=== PATIENT | male | born 1990 | race African-American/Black ===

== ENCOUNTER 2016-05-10 12:55 | Emergency (ER) | payer OTHER ==
[~2016-05-10] VITALS: Ht 182.9 cm; Wt 95.3 kg
[~2016-05-10 12:55] MED LIST: CORTISPORIN 1%-10 ML OT; ZITHROMAX Z-PA250 M1 PO
[2016-05-10 13:05] VITALS: BP 147/78
--- NOTE | 2016-05-10 16:46 | ED UPPER/LOWER EXTREMITY COMPL ---
History of Present Illness General Chief Complaint: Lower Extremity Problems Stated Complaint: L KNEE PAIN X4 DAYS Source: patient Exam Limitations: no limitations Vital Signs & Intake/Output Vital Signs & Intake/Output Vital Signs Date Time Temp Pulse Resp B/P Pulse O2 O2 Flow FiO2 Ox Delivery Rate 05/10 1305 98.9 82 18 147/78 99 Room Air Allergies Coded Allergies: Penicillins (Severe, THROAT CLOSURE 05/10/16) Triage Note: C/O LEFT KNEE PAIN SINCE SATURDAY. HURT IT PLAYING BASKETBALL NO RELIEF OF PAIN WITH ICE Triage Nurses Notes Reviewed? yes HPI: Patient presents for evaluation of bilateral left knee pain that occurred abruptly 4 days ago while playing basketball. Patient states that he stopped suddenly pain in the knee. He states there was no fall or other trauma or direct blow. Since then he has had worsening constant bilateral left knee pain that has not responded to ice and elevation. He states pain worsens with attempts to ambulate and with palpation. Past History Travel History Traveled to [place] past 21 day No Medical History Any Pertinent Medical History? see below for history Neurological: NONE EENT: NONE Cardiovascular: NONE Respiratory: NONE Gastrointestinal: NONE Hepatic: NONE Renal: NONE Musculoskeletal: NONE Psychiatric: NONE Endocrine: NONE Blood Disorders: NONE Cancer(s): NONE REDYE HAND/Reproductive: NONE Surgical History Surgical History: N Psychosocial History What is your primary language French Tobacco Use: Never used ETOH Use: occasional use Illicit Drug Use: denies illicit drug use Family History Hx Contributory? No Review of Systems Review of Systems Constitutional: Reports: no symptoms. EENTM: Reports: no symptoms. Respiratory: Reports: no symptoms. Cardiovascular: Reports: no symptoms. Gastrointestinal/Abdominal: Reports: no symptoms. Genitourinary: Reports: no symptoms. Musculoskeletal: Reports: see HPI. Skin: Reports: no symptoms. Neurological/Psychological: Reports: no symptoms. Hematologic/Endocrine: Reports: no symptoms. Immunological: Reports: no symptoms. All Other Systems: Reviewed and Negative Physical Exam Physical Exam General Appearance: SEE BELOW Comments: Gen.: Well-nourished, well-developed, no acute respiratory distress. Head: Normocephalic, atraumatic. Eyes: Normal inspection bilaterally Ears: Normal inspection bilaterally Nose: Normal inspection, nasal cannula in place Throat/mouth : Moist mucosa Neck: Supple, full range of motion, no goiter Heart: Regular rate and rhythm Lungs: Quiet respirations Back: Normal range of motion Extremities: Left knee: Slight knee effusion. No ecchymoses or soft tissue swelling otherwise. Tenderness of the lateral and medial collateral ligaments, no drawer sign. No tenderness over the popliteal fossa. Neurologic: Cranial nerves grossly intact, speech is clear Skin: warm and dry Psychiatric: Calm, cooperative, no apparent delusions or hallucinations Progress Differential Diagnosis: contusion, dislocation, fracture, sprain Plan of Care: Immobilizer, anti-inflammatory, follow up Comments: Given the mechanism and physical examination, I do not feel the patient requires imaging studies. Patient agrees. Departure Departure Disposition: HOME OR SELF CARE Condition: Stable Clinical Impression Primary Impression: Left knee sprain Qualifiers: Encounter type: initial encounter Involved ligament of knee: medial collateral ligament Qualified Code: S83.412A - Sprain of medial collateral ligament of left knee, initial encounter Secondary Impressions: Effusion, left knee Referrals: PATIENT HAS NO PRIMARY CARE DR (PCP/Family) Additional Instructions: Voltaren as prescribed for knee pain. Knee immobilizer as required. Follow-up with either your primary care physician or an orthopedic physician in 2 weeks if not improved. Return if any concerns or sudden worsening. Thank you for choosing the [facility] Emergency Department for your care. It was a pleasure to serve you today. Dwight Murdock M.D. [facility] Departure Forms: Customer Survey General Discharge Information
[2016-05-10] MEDS ORDERED: DICLOFENAC SODI75 M2 PO (17:01)
== END 2016-05-10 17:37 ==
LOC: ERH 12:55
DX: S83.92XA Sprain of unspecified site of left knee, initial encounter (principal); M25.462 Effusion, left knee; X58.XXXA Exposure to other specified factors, initial encounter; Y93.67 Activity, basketball

== ENCOUNTER 2016-06-21 18:28 | Emergency (ER) | payer OTHER ==
[~2016-06-21] VITALS: Ht 182.9 cm; Wt 95.3 kg
[~2016-06-21 18:28] MED LIST changes: +DICLOFENAC SODI75 M2 PO
[2016-06-21 20:11] LABS: ABSOLUTE BASOPHIL COUNT 0 /CUMM (0.0-0.2); ABSOLUTE EOSINOPHIL COUNT 0.2 /CUMM (0.0-0.7); ABSOLUTE GRANULOCYTE CT 3.8 /CUMM (1.4-6.5); ABSOLUTE LYMPH COUNT 2.1 /CUMM (1.2-3.4); ABSOLUTE MONOCYTE COUNT 0.5 /CUMM (0.10-0.60); BASOPHIL % 0.4 % (0.0-2.0); EOSINOPHIL % 2.6 % (0-5); GRANULOCYTE % 57.1 % (42.2-75.2); HEMATOCRIT 43.7 % (42-52); MEAN CORPUSCULAR HGB 28.8 PG (27.0-31.0); MEAN CORPUSCULAR HGB CONC 32.7 G/DL (33.0-37.0); MEAN CORPUSCULAR VOLUME 87.9 FL (80.0-94.0); MEAN PLATELET VOLUME 8.1 FL (7.4-10.4); PLATELET COUNT 277 /CUMM (130-400); RBC DISTRIBUTION WIDTH 13.5 % (11.5-14.5); RED BLOOD CELL CT 4.97 /CUMM (4.70-6.10); WHITE BLOOD CELL COUNT 6.7 /CUMM (4.8-10.8)
--- NOTE | 2016-06-21 21:22 | ED GI/GU/ABDOMINAL COMPLAINT ---
History of Present Illness General Chief Complaint: Abdominal Pain/Flank Pain Stated Complaint: R SIDE FLANK PAIN AND FEVER Source: patient Exam Limitations: no limitations Vital Signs & Intake/Output Vital Signs & Intake/Output Vital Signs Date Time Temp Pulse Resp B/P Pulse O2 O2 Flow FiO2 Ox Delivery Rate 06/211 97.6 63 18 124/66 97 Room Air 06/21 1900 99.4 79 18 139/75 97 Room Air Allergies Coded Allergies: Penicillins (Severe, THROAT CLOSURE 05/10/16) Triage Note: PT TO TRIAGE WITH C/O EPIGASTRIC AND RLQ PAIN/CRAMPING ON/OFF SINCE YESTERDAY, FEVER, DIARRHEA, NAUSEA. PT DENIES VOMITING, DENIES CHEST PAIN,SOB. PT AFEBRILE IN TRIAGE. DENIES PAIN IN TRIAGE. VSS. Triage Nurses Notes Reviewed? yes Onset: Gradual Duration: day(s): (2) Timing: no prior history Quality/Severity: sharpness Severity Numbers: 6 Location: right lower quadrant Radiation: no radiation Activities at Onset: none Prior Abdominal Problems: none Past Sexual History: Unobtainable at this time No Modifying Factors: none HPI: Patient is a 26-year-old male presenting to the emergency department with chief complaint of right lower quadrant pain, nausea, decreased by mouth intake has been going on since yesterday. Decreased by mouth intake since yesterday, no vomiting. He reports one episode of diarrhea yesterday. Denies any urinary frequency urgency or dysuria. No testicular pain. Pain is moderate. He reports that the pain seems to come and go since yesterday. Denies taking anything at home to help with pain. (ODILIA BENEDICT) Reconcile Medications No Known Home Medications (RIANA ROSALES MD) Past History Travel History Traveled to [place] past 21 day No Medical History Any Pertinent Medical History? 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 No (ODILIA BENEDICT) Review of Systems Review of Systems Constitutional: Reports: chills, malaise. Comments Review of systems: See HPI, All other systems negative. Constitutional, no fever or weight loss HEENT: No visual changes no sore throat no congestion Cardiovascular: No chest pain ,palpitation Skin, no jaundice no rashes Respiratory: No dyspnea cough sputum or hemoptysis GI: no vomiting : No dysuria No hematuria Muscle skeletal: no back pain, no neck pain, Neurologic: No numbness no confusion Psych: No stress anxiety Immunology: No splenectomy or history of AIDS (ODILIA BENEDICT) Physical Exam Physical Exam General Appearance: well developed/nourished, no apparent distress, alert, awake , comfortable Gastrointestinal: normal bowel sounds, soft, guarding, tenderness Comments: Well-developed well-nourished person in no acute distress HEENT:Pupils equally round and reactive to light and accommodation. Nose is atraumatic.. Neck: Normal inspection Back: Nontender, no CVA tenderness. Cardiovascular: Regular rate and rhythms no murmurs rubs or gallops, normal JVP Respiratory: Chest nontender. No respiratory distress.breath sounds clear to auscultation bilaterally Abdomen: Soft, tender to palpation in the right lower quadrant, mild guarding, nondistended, no appreciable organomegaly. Normal bowel sounds. No ascites Extremity: No edema Neuro: Alert oriented x3 Skin: No appreciable rash on exposed skin, skin is warm and dry. Psych: Mood and affect is normal, memory and judgment is normal. Core Measures ACS in differential dx? No Severe Sepsis Present: No Septic Shock Present: No (ODILIA BENEDICT) Progress Differential Diagnosis: appendicitis, biliary colic, bowel obstruction, cholecystitis, gastritis, UTI/pyelo Plan of Care: Orders Procedure Date/time Status Add-on Test (ER Only) 06/21 1926 Active URINALYSIS 06/21 1900 Complete LIPASE 06/21 1900 Complete C-REACTIVE PROTEIN 06/21 1900 Complete COMPREHENSIVE METABOLIC PANEL 06/21 1900 Complete CBC WITHOUT DIFFERENTIAL 06/21 1900 Complete AMYLASE 06/21 1900 Complete Laboratory Tests 06/21/16 2008: Urine Color YEL, Urine Clarity CLEAR, Urine pH 6.0, Ur Specific Preemption >= 1.030 , Urine Protein NEG, Urine Ketones NEG, Urine Nitrite NEG, Urine Bilirubin NEG, Urine Urobilinogen 0.2, Ur Leukocyte Esterase NEG, Ur Microscopic EXAM NOT REQUIRED, Urine Hemoglobin NEG, Urine Glucose NEG 06/21/161958: Anion Gap 9, Estimated GFR > 60, BUN/Creatinine Ratio 11.0, Glucose 89, Calcium 9.7, Total Bilirubin 0.6, AST 25, ALT 32, Alkaline Phosphatase 71, C-Reactive Prot, Quant 2.9 H, Total Protein 7.8, Albumin 4.3, Globulin 3.5, Albumin/ Globulin Ratio 1.2, Amylase 83, Lipase 101, CBC w Diff NO MAN DIFF REQ, RBC 4.97 , MCV 87.9, MCH 28.8, RDW 13.5, MPV 8.1, Gran % 57.1, Lymphocytes % 31.7, Monocytes % 8.2, Eosinophils % 2.6, Basophils % 0.4, Absolute Granulocytes 3.8, Absolute Lymphocytes 2.1, Absolute Monocytes 0.5, Absolute Eosinophils 0.2, Absolute Basophils 0, PUBS MCHC 32.7 L Diagnostic Imaging: Viewed by Me: CT Scan. Discussed w/RAD: CT Scan. Radiology Impression: PATIENT: KAROLINA GRIFFIN PRESENT AGE: 26 PATIENT ACCOUNT NO: [id number] : 92 LOCATION: [facility] ORDERING PHYSICIAN: ODILIA BRUNSON SERVICE DATE: 06/21/16 EXAM TYPE: CAT - CT ABD & PELVIS W IV CONTRAST EXAMINATION: CT ABDOMEN AND PELVIS WITH CONTRAST CLINICAL INFORMATION: 26-year-old male patient with right lower quadrant pain. COMPARISON: None TECHNIQUE: Multidetector volumetric imaging was performed of the abdomen and pelvis before and after the IV administration of 95 mL of Optiray 320 intravenous contrast. Sagittal and coronal reformatted images were obtained on the technologist's workstation. DLP: 393 mGy-cm FINDINGS: Structural Biologist view shows a mild burden of formed stool throughout the colon. The sigmoid colon is quite capacious and redundant. LUNG BASES: The visualized lung bases are unremarkable. LIVER, GALLBLADDER, AND BILIARY TREE: The liver is normal in size, shape, and attenuation. No focal hepatic lesion or biliary ductal dilatation is present. The gallbladder is unremarkable with no evidence of radiopaque gallstones, gallbladder wall thickening, or obvious pericholecystic inflammatory changes. PANCREAS: Unremarkable. SPLEEN: Unremarkable. ADRENAL GLANDS: Unremarkable. KIDNEYS AND URETERS: The kidneys are normal in size, shape, and attenuation. No hydronephrosis, hydroureter, or calculi seen. No perinephric stranding. BLADDER: Empty. GASTROINTESTINAL TRACT: The small and large bowel are unremarkable. The appendix is unremarkable. There is no evidence of free air or fluid in the peritoneal cavity. ABDOMINAL WALL: No significant hernia is appreciated. LYMPH NODES: Normal. VASCULAR: Unremarkable. PELVIC VISCERA: Unremarkable. OSSEOUS STRUCTURES: Unremarkable. IMPRESSION: No significant abnormality. Normal appendix. DICTATED BY: BRIANA SHERWOOD MD DATE/TIME DICTATED:06/21/162205 WELL HEAD PUMPER:DEIRDRE DATE/TIME TRANSCRIBED:2205 CONFIDENTIAL, DO NOT COPY WITHOUT APPROPRIATE AUTHORIZATION. < Electronically signed in Other Vendor System> SIGNED BY: BRIANA SHERWOOD MD 06/21/162222 Initial ED EKG: none Comments: On arrival patient no acute distress,, he does have reproducible right lower quadrant pain with mild guarding. Cannot exclude appendicitis. Patient will go for ct secondary to elevated CRP levels. No elevation in white blood cell count. Patient medicated with fluids and Toradol. Patient feeling improved after Toradol. He will be discharged home secondary to negative CT scan. Likely viral syndrome. will return for wrosening symptoms or concerns. (ODILIA BENEDICT) Departure Departure Time of Disposition: 2224 Disposition: HOME OR SELF CARE Condition: Stable Clinical Impression Primary Impression: Abdominal pain Qualifiers: Abdominal location: right lower quadrant Qualified Code: R10.31 - Right lower quadrant pain Referrals: PATIENT HAS NO PRIMARY CARE DR (PCP/Family) Additional Instructions: Follow-up with your primary care physician call to make an appointment. Take Motrin and Tylenol [id number] as directed for any aches or pains. Increase fluids. Return for worsening symptoms or concerns. 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 I have also reviewed all the pertinent lab results and diagnostic results. I agree with the findings and the plan of care as documented in the PA's/TEXTILE CUTTING MACHINE OPERATOR's documentation. x I have reviewed the ED Record and agree with the PA's/TEXTILE CUTTING MACHINE OPERATOR's documentation. [] Additions or exceptions (if any) to the PAs/TEXTILE CUTTING MACHINE OPERATOR's note and plan are summarized below: [] (CONNIE GONZALES,RIANA)
--- NOTE | 2016-06-21 22:23 | CT SCAN REPORT ---
EXAMINATION: CT ABDOMEN AND PELVIS WITH CONTRAST CLINICAL INFORMATION: 26-year-old male patient with right lower quadrant pain. COMPARISON: None TECHNIQUE: Multidetector volumetric imaging was performed of the abdomen and pelvis before and after the IV administration of 95 mL of Optiray 320 intravenous contrast. Sagittal and coronal reformatted images were obtained on the technologist's workstation. DLP: 393 mGy-cm FINDINGS: Carpet Tile Layer view shows a mild burden of formed stool throughout the colon. The sigmoid colon is quite capacious and redundant. LUNG BASES: The visualized lung bases are unremarkable. LIVER, GALLBLADDER, AND BILIARY TREE: The liver is normal in size, shape, and attenuation. No focal hepatic lesion or biliary ductal dilatation is present. The gallbladder is unremarkable with no evidence of radiopaque gallstones, gallbladder wall thickening, or obvious pericholecystic inflammatory changes. PANCREAS: Unremarkable. SPLEEN: Unremarkable. ADRENAL GLANDS: Unremarkable. KIDNEYS AND URETERS: The kidneys are normal in size, shape, and attenuation. No hydronephrosis, hydroureter, or calculi seen. No perinephric stranding. BLADDER: Empty. GASTROINTESTINAL TRACT: The small and large bowel are unremarkable. The appendix is unremarkable. There is no evidence of free air or fluid in the peritoneal cavity. ABDOMINAL WALL: No significant hernia is appreciated. LYMPH NODES: Normal. VASCULAR: Unremarkable. PELVIC VISCERA: Unremarkable. OSSEOUS STRUCTURES: Unremarkable. IMPRESSION: No significant abnormality. Normal appendix.
[2016-06-21 22:31] VITALS: BP 124/66
== END 2016-06-21 22:40 ==
LOC: ERH 18:28
PROVIDERS: Physician Assistant Medical
DX: R10.31 Right lower quadrant pain (principal)
CPT/HCPCS: 74177; 81003; 96374; J1885

== ENCOUNTER 2017-12-05 19:04 | Emergency (ER) | payer OTHER ==
[~2017-12-05] VITALS: Ht 180.3 cm; Wt 95.3 kg
--- NOTE | 2017-12-05 21:28 | ED GENERAL ADULT ---
History of Present Illness General Chief Complaint: Lower Extremity Injury Stated Complaint: "LT HAMSTRING PULLED" Source: patient Exam Limitations: no limitations Vital Signs & Intake/Output Vital Signs & Intake/Output Vital Signs Date Time Temp Pulse Resp B/P B/P Pulse O2 O2 Flow FiO2 Mean Ox Delivery Rate 12/052 98.2 82 18 121/62 98 Room Air 12/054 100 Room Air 12/05 1932 98.1 88 20 125/67 97 Room Air ED Intake and Output 12/06 0000 12/05 1200 Intake Total Output Total Balance Patient 210 lb Weight Weight Reported by Patient Measurement Method Allergies Coded Allergies: Penicillins (Severe, THROAT CLOSURE 05/10/16) Reconcile Medications Cyclobenzaprine HCl 10 MG TABLET 1 TAB PO TID PRN PAIN Ibuprofen 800 MG TABLET 1 TAB PO TID PRN PAIN Triage Note: PT HERE FROM HOME WITH C/O LEFT TIGH PAIN. PT REPORTS DOING SPRINTS AND FELT SOMETHING PULL IN BACK OF LEFT THIGH. SLIGHT SWEELING NOTRED TO UNDER LEFT BUTTOCKS. Triage Nurses Notes Reviewed? yes Onset: Abrupt Duration: hour(s): (3), constant, continues in ED Timing: single episode today Injury Environment: work Severity: moderate, severe Severity Numbers: 8 No Modifying Factors: none Modifying Factors: Worsens With: movement. HPI: 27-year-old male with no medical history presents for evaluation of pain to his leftt posterior thigh. 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 He was doing sprints and while he was running he felt a "pull" in his left posterior thigh followed by pain. The pain has persisted and he feels like there is some swelling to the area. The pain is located in the left posterior thigh just below the buttock. No numbness or tingling. No knee pain no hip pain. Patient is able to walk but is walking with a limp. The pain is worse with movement or weightbearing. There was no fall no direct trauma. He is not taking any medicine for pain. (Joshua Chavez) Past History Travel History Traveled to [place] past 21 day No Medical History Any Pertinent Medical History? see below for history Neurological: NONE EENT: NONE Cardiovascular: NONE Respiratory: NONE Gastrointestinal: NONE Hepatic: NONE Renal: NONE Musculoskeletal: NONE Psychiatric: NONE Endocrine: NONE Blood Disorders: NONE Cancer(s): NONE LATHE HAND/Reproductive: NONE Surgical History Surgical History: N Psychosocial History What is your primary language Burundian Tobacco Use: Never used ETOH Use: occasional use Illicit Drug Use: denies illicit drug use Family History Hx Contributory? No (Joshua Chavez) Review of Systems Review of Systems Constitutional: Reports: no symptoms. EENTM: Reports: no symptoms. Respiratory: Reports: no symptoms. Cardiovascular: Reports: no symptoms. GI: Reports: no symptoms. Genitourinary: Reports: no symptoms. Musculoskeletal: Reports: joint pain, muscle pain, muscle stiffness. Skin: Reports: no symptoms. Neurological/Psychological: Reports: no symptoms. Hematologic/Endocrine: Reports: no symptoms. Immunologic/Allergic: Reports: no symptoms. All Other Systems: Reviewed and Negative (Joshua Chavez) Physical Exam Physical Exam General Appearance: well developed/nourished, no apparent distress, alert, awake Head: atraumatic, normal appearance Eyes: Bilateral: normal appearance, EOMI. Ears, Nose, Throat: hearing grossly normal Neck: normal inspection, supple, full range of motion Respiratory: no respiratory distress Peripheral Pulses: 2+ tibialis posterior (R), 2+ tibialis posterior (L), 2+ dorsalis pedis (R), 2+ dorsalis pedis (L) Back: normal inspection, normal range of motion, no vertebral tenderness Extremities: there is promise with palpation of the left posterior thigh just below the left buttock. there is some soft tissue swelling in this area. no erythema or brusing. rom of the left hip is reduced due to pain. full rom of the rt knee and ankle. neurovascualr supply intact. pt is able to bear weight but is limping on the affected side. no other joint swelling or pain Neurologic/Psych: no motor/sensory deficits, awake, alert, oriented x 3, normal mood/affect Skin: intact, normal color, warm/dry Core Measures ACS in differential dx? No CVA/TIA Diagnosis: No Sepsis Present: No Sepsis Focused Exam Completed? No (Joshua Chavez) Progress Differential Diagnoses I considered the following diagnoses in my evaluation of the patient: [Hamstring muscle strain, sprain, tendinitis, tendon rupture, avulsion fracture, fracture] Plan of Care: Orders Procedure Date/time Status Durable Medical Equipment 12/05 2129 Active Patient is here for evaluation of pain in the left hamstring muscles. He was sprinting when he suddenly felt a pulling sensation followed by pain in the left hamstrings. On exam there is some soft tissue swelling to the superior insertion point of the hamstrings. No bony point tenderness or trauma to suggest fracture. Patient is able to bear weight but with pain. Neurovascular supplies intact. Patient was medicated with Toradol and Flexeril here and is feeling better. Rest ice elevation compression. Patient was given crutches. He was referred to orthopedics. X-rays were deferred at this time as there is no bony point tenderness to suggest a fracture. There is no direct trauma. Advised patient he may need physical therapy or imaging in the future if his pain persists. He was given prescriptions for ibuprofen and Flexeril to go home with. Discussed return precautions in detail patient agrees the plan Initial ED EKG: none (Vinnie BRUNSON,Joshua) Departure Departure Disposition: HOME OR SELF CARE Condition: Stable Clinical Impression Primary Impression: Hamstring injury Qualifiers: Encounter type: initial encounter Laterality: right Qualified Code: S76.301A - Unspecified injury of muscle, fascia and tendon of the posterior muscle group at thigh level, right thigh, initial encounter Referrals: Rita GONZALES,Kirk Harris Patient Has No Primary Care Dr (PCP/Family) Additional Instructions: Rest, avoid excessive weightbearing and movement of your leg. Walk with crutches. Apply ice 15-20 minutes every few hours. Ibuprofen 800 mg every 8 hours with food as needed for pain. Flexeril can also be used every 8 hours as needed for pain this may cause drowsiness. Need to follow-up with provided orthopedic doctor Dr. Salinas as soon as possible. YOU may require physical therapy or an MRI in the future IF pain persists. Monitor symptoms closely if you notice worsening pain swelling redness or any other concerns return immediately. Please go over all results of today's visit with your primary care doctor. Contact your primary care doctor to let them know you were here in the emergency room. There may be nonspecific findings which may not be related to your visit today here in the emergency room but may require further evaluation and chronic monitoring by your primary care doctor. If you had a laceration today the chance of foreign body always remains. You should follow-up with your primary care doctor for recheck in 3-5 days for a wound check. If you had an x-ray done there is a chance that a fracture could have been missed on initial read and you should follow-up with your primary care doctor for repeat x-rays if symptoms persist. If your blood pressure was elevated here in the emergency room please have rechecked by lisaour primary care doctor within the next 48. If you were prescribed a narcotic here in the emergency room or any type of controlled substances you're not allowed to drive while taking this medication or operate any type of heavy machinery. Narcotics can make you feel lightheaded dizziness nausea and can cause constipation. You may need to picket labor [employer] a stool softener. Thank you for choosing [facility] emergency room. Please return to the emergency room immediately if you have any other concerns worsening of symptoms. Departure Forms: Customer Survey General Discharge Information Prescriptions: Current Visit Scripts Ibuprofen 1 TAB PO TID PRN PAIN #30 TAB Cyclobenzaprine HCl 1 TAB PO TID PRN PAIN #30 TAB (Joshua Chavez) PA/WELL DIGGER Co-Sign Statement Statement: ED Attending supervision documentation- I saw and evaluated the patient. I have also reviewed all the pertinent lab results and diagnostic results. I agree with the findings and the plan of care as documented in the PA's/WELL DIGGER's documentation. x I have reviewed the ED Record and agree with the PA's/WELL DIGGER's documentation. [] Additions or exceptions (if any) to the PAs/WELL DIGGER's note and plan are summarized below: [] (Andres GONZALES,Florentin) Critical Care Note Critical Care Note Critical Care Time: non-applicable (Joshua Chavez)
[2017-12-05] MEDS ORDERED: IBUPROFEN800 M1 PO (21:29)
[2017-12-05] MEDS ORDERED: CYCLOBENZAPRINE10 M1 PO (21:29)
[2017-12-05 21:42] VITALS: BP 121/62
== END 2017-12-05 21:43 ==
LOC: ERH 19:04
DX: S89.92XA Unspecified injury of left lower leg, initial encounter (principal); X58.XXXA Exposure to other specified factors, initial encounter; Y93.02 Activity, running; Y92.9 Unspecified place or not applicable
CPT/HCPCS: 96372; J1885